=== PATIENT | male | born 1970 | race American Indian/Alaskan Native ===

== ENCOUNTER 2018-04-25 11:25 | Emergency (ER) | payer OTHER ==
[2018-04-25 11:33] VITALS: BP 138/89
[2018-04-25] MEDS ORDERED: TORADOL IM ONE (12:34)
[2018-04-25] MEDS ORDERED: SOLU-Medrol IM ONE (12:35)
--- NOTE | 2018-04-25 12:44 | Emergency Department Report ---
HPI - General Chief Complaint: Extremity Injury, Lower Time Seen by Provider: 04/25/18 12:15 - HPI HPI: This is a 47-year-old male presents to ED complaining of left-sided lower back pain that radiates down his thighs. Patient states she is otherwise at back pain with radiation started 2 days ago. States he may have lifted something wrong to aggravate this pain. He denies any injuries, trauma or falls. Patient states that pain is worsened with prolonged walking or standing ED Past Medical Hx - Past Medical History Previous Medical History?: No - Surgical History Past Surgical History?: No - Social History Smoking Status: Never Smoker Substance Use Type: None - Medications Home Medications: Home Medications Medication Instructions Recorded Confirmed Last Taken Type Cyclobenzaprine [Flexeril] 10 mg PO QHS PRN #20 tablet 04/25/18 Unknown Rx Ibuprofen [Motrin] 800 mg PO Q8HR #30 tablet 04/25/18 Unknown Rx ED Review of Systems ROS: Stated complaint: (L) LEG PAIN Other details as noted in HPI Comment: All other systems reviewed and negative Physical Exam - Physical Exam Vital Signs: Vital Signs 04/25/18 11:32 Temperature 98 F Pulse Rate 88 Respiratory 18 Rate Blood Pressure 138/89 O2 Sat by Pulse 99 Oximetry Physical Exam: GENERAL: Alert and oriented x3, no apparent distress, Normal Gait, atraumatic. HEAD: Head is normocephalic and a-traumatic. NECK: Supple. Non edematous, No carotid bruits. No lymphadenopathy or thyro megaly. No C-spine tenderness LUNGS: Symetrical with respiration, No wheezing, no rales or crackles, CTAB. HEART: S1, S2 present, regular rate and rhythm without murmur, no rubs, no gallops. Non tender to palpation BACK: Full range of motion, no spinal tenderness, nontender to palpation. Tenderness to palpation of the latissimus dorsi muscles EXTREMITIES/MUSCULOSKELETAL: No cyanosis, clubbing, rash, lesions or edema. Full ROM bilaterally. No deformities seen. LE 5+ strength bilaterally, straight leg raise positive on the left side NEUROLOGIC: The patient is cooperative with no focal neurologic deficits. SKIN: Warm and dry, No lesions, No ulceration or induration present. ED Course Vital Signs 04/25/18 11:32 Temperature 98 F Pulse Rate 88 Respiratory 18 Rate Blood Pressure 138/89 O2 Sat by Pulse 99 Oximetry ED Medical Decision Making - Medical Decision Making 47-year-old male presents with lumbar radiculopathy with sciatic pain the left side. Patient received pain medication ED. Patient is in no acute distress Reports to feeling better prior to leaving ED. Patient able to ambulate with some pain but ambulating well. Discussed the patient wanted to follow up with orthopedic. Vital signs are normal he is in no acute distress. Critical care attestation.: If time is entered above; I have spent that time in minutes in the direct care of this critically ill patient, excluding procedure time. ED Disposition Clinical Impression: Lumbar radiculopathy, Sciatic leg pain Disposition: TO HOME OR SELFCARE Is pt being admited?: No Does the pt Need Aspirin: No Condition: Stable Instructions: Low Back Strain (ED), Lumbar Radiculopathy (ED) Additional Instructions: Make sure to follow up with the primary care physician as discussed. Take all your medications as you've been prescribed. If you have any worsening symptoms or develop new symptoms please return to ED immediately. Prescriptions: Cyclobenzaprine [Flexeril] 10 mg PO QHS PRN #20 tablet PRN Reason: Muscle Spasm Ibuprofen [Motrin] 800 mg PO Q8HR #30 tablet Referrals: [facility] [Outside] - 3-5 Days BELEN US MD [Staff Physician] - 3-5 Days Forms: Work/School Release Form(ED) Time of Disposition: 13:22
== END 2018-04-25 13:26 | disposition home or self-care (01) ==
LOC: ED 11:25
DX: M54.16 Radiculopathy, lumbar region (principal); M54.30 Sciatica, unspecified side
CPT/HCPCS: 96372; 99283; J1885; J2920